=== PATIENT | male | born 2000 | race Hispanic/Latino ===

== ENCOUNTER 2022-10-24 19:59 | Emergency (ER) | payer BC ==
[~2022-10-24] VITALS: Ht 182.9 cm; Wt 117.9 kg
[2022-10-24 20:02] VITALS: BP 130/70
== END 2022-10-24 20:48 | disposition left against medical advice (07) ==
LOC: EDH 19:59
DX: R50.9 Fever, unspecified (principal); Z53.21 Procedure and treatment not carried out due to patient leaving prior to being seen by health care provider